=== PATIENT | female | born 1960 | race Caucasian/White ===

== ENCOUNTER 2021-03-06 14:02 | Emergency (ER) | payer BC ==
[~2021-03-06] VITALS: Ht 165.1 cm; Wt 70.9 kg
[2021-03-06 14:06] VITALS: BP 162/102
[2021-03-06] MEDS ORDERED: LIDOcaine 1% W/epiNEPHrine 1:200,000 10ml vial IJ ONE (15:00)
[2021-03-06] MEDS ORDERED: LIDOcaine 1% w/epiNEPHrine 1:200,000 30ml vial IJ ONE (15:10)
[2021-03-06] MEDS ORDERED: HYDR-3965 PO (18:30)
[2021-03-06] MEDS ORDERED: ONDA4TAB6 PO (18:30)
== END 2021-03-06 19:22 | disposition home or self-care (01) ==
LOC: ER 14:03
DX: S52.125A Nondisplaced fracture of head of left radius, initial encounter for closed fracture (principal); S62.115A Nondisplaced fracture of triquetrum [cuneiform] bone, left wrist, initial encounter for closed fracture; S01.111A Laceration without foreign body of right eyelid and periocular area, initial encounter; S41.112A Laceration without foreign body of left upper arm, initial encounter; S81.811A Laceration without foreign body, right lower leg, initial encounter; R20.0 Anesthesia of skin; Z79.899 Other long term (current) drug therapy; W19.XXXA Unspecified fall, initial encounter; Z91.81 History of falling; Y92.89 Other specified places as the place of occurrence of the external cause; Y93.67 Activity, basketball; Y99.8 Other external cause status; R11.0 Nausea; R10.9 Unspecified abdominal pain
CPT/HCPCS: 12001; 12011; 29105; 70450; 73080; 73090; 73110; 73590; 99284

== ENCOUNTER 2021-05-03 06:27 | Day surgery (SDC) | payer BC ==
[2021-04-29 15:00] LABS: BASOPHILS % (AUTO) 1.2 % (0-1); EOSINOPHILS # (AUTO) 0.1 X10'3 (0-0.9); EOSINOPHILS % (AUTO) 2.7 % (0-6); LYMPHOCYTES # (AUTO) 1.4 X10'3 (1.1-4.8); LYMPHOCYTES % (AUTO) 36.6 % (21-51); MEAN CORPUSCULAR HGB CONC 33.5 g/dL (33.0-36.5); MEAN CORPUSCULAR VOLUME 89.5 FL (78-98); MEAN PLATELET VOLUME 8.2 FL (7.4-10.4); MONOCYTES # (AUTO) 0.4 X10'3 (0-0.9); MONOCYTES % (AUTO) 11.3 % (2-12); NEUTROPHILS # (AUTO) 1.8 X10'3 (1.8-7.7); NEUTROPHILS % (AUTO) 48.2 % (42-75); PRE OP HEMATOCRIT 38.7 % (35.0-45.0); PRE OP PLATELET COUNT 246 X10'3 (140-440); RED BLOOD COUNT 4.33 X10'6 (4.20-5.60); RED CELL DISTRIBUTION WIDTH 13.8 % (11.5-14.5)
[2021-04-29 15:02] LABS: ALBUMIN 3.9 G/DL (3.4-5.0); ALBUMIN/GLOBULIN RATIO 1.1 (1.1-1.5); ALKALINE PHOSPHATASE 106 IU/L (46-116); BLOOD UREA NITROGEN 16 MG/DL (7-18); BUN/CREATININE RATIO 15.2 (6.6-38.0); CHLORIDE 106 MMOL/L (99-107); CREATININE 1.05 MG/DL (0.40-0.90); PRE OP ALT 25 U/L (30-65); PRE OP ANION GAP 5 (8-16); PRE OP AST 15 U/L (10-37); PRE OP BILIRUB, TOTAL 0.3 MG/DL (0.0-1.0); PRE OP GLUCOSE 104 MG/DL (70-104); PRE OP POTASSIUM 4.5 MMOL/L (3.4-5.1); PRE OP SODIUM 143 MMOL/L (135-145); TOTAL CARBON DIOXIDE 31.8 MMOL/L (24-32); TOTAL PROTEIN 7.5 G/DL (6.4-8.2); eGFR 53 ML/MIN
[2021-05-03] VITALS (7 sets, daily range): BP systolic 95–127; BP diastolic 58–81
[~2021-05-03] VITALS: Ht 167.6 cm; Wt 68.5 kg
[~2021-05-03 06:27] MED LIST: ASPI-1265 PO; CHOL50CA2 PO; CRAN450T4 PO; LEVO100T PO; MECO10005 PO; OMEG-79 PO; famotidine 20mg tablet PO ONE; ringers solution, lacted 1,000 ML IV SCH
[2021-05-03] MEDS ORDERED: BUPIVAcaine/PF 2.5mg/ml (0.25%) 10ml vial ONE (06:42)
[2021-05-03] MEDS ORDERED: ceFAZolin 2gm in dextrose, iso 50 ML IV ONE (07:36)
[2021-05-03] MEDS ORDERED: fentaNYL/PF 50MCG/1 ML 2ML syringe ONE (09:22)
[2021-05-03] MEDS ORDERED: midazolam 1 mg/ML 2ml injection ONE (09:34)
[2021-05-03] MEDS ORDERED: LIDOcaine 0.5% (5mg/ml) 50ml vial ONE (09:59)
[2021-05-03] MEDS ORDERED: propofol inj 20 ML IV ONE ×4 (10:39)
[2021-05-03] MEDS ORDERED: ROPIVAcaine 0.5% (5mg/ml) 30ml vial ONE (10:57)
--- NOTE | 2021-05-03 11:14 | NUR ---
Received from OR via [facility] , accompanied by Anesthesiologist DOYLE and report given by Anesthesiolgist. PATIENT WITH 20G PIV IN RIGHT AC RUNNING LR AT 100. LEFT WRIST WITH AVELINA WRAP PRESENT THIS IS CDI AT THIS TIME. + CAP REFILL TO ALL FINGERS. PWD NO DRAINAGE EVIDENT TO LEFT UE. Addendum: 05/03/21 at 1125 by Mikie Acuña RN, RN Amended: Links added.
[2021-05-03] MEDS ORDERED: morphine 2 MG/ML inj. syringe IV PRN (11:15)
[2021-05-03] MEDS ORDERED: proCHLORperazine 10 MG/2 ml inj IV PRN (11:15)
[2021-05-03] MEDS ORDERED: meperidine/PF 25mg/ml syringe IV PRN ×3 (11:15)
[2021-05-03] MEDS ORDERED: hydrALAZINE 20mg/ml inj. IV PRN (11:15)
[2021-05-03] MEDS ORDERED: labetalol 20mg/4ml (5mg/ml) syringe IV PRN (11:15)
[2021-05-03] MEDS ORDERED: acetaminophen 1,000mg/100ml IV 100 ML IV PRN (11:15)
[2021-05-03] MEDS ORDERED: ringers solution, lacted 1,000 ML IV SCH (11:15)
[2021-05-03] MEDS ORDERED: ketorolac trometh. 30mg/ml inj. IV ONE (11:15)
[2021-05-03] MEDS ORDERED: ondansetron/PF 4mg/2ml inj IV PRN (11:15)
[2021-05-03] MEDS ORDERED: morphine 4 MG/ML inj SYRINge IV PRN (11:15)
--- NOTE | 2021-05-03 12:14 | NUR ---
ALL DISCHARGE CRITERIA HAS BEEN MET. VSS, PAIN AT A TOLERABLE LEVEL, VOIDING AND ABLE TO SAFELY AMBULATE AND TRANSFER SELF. IV TAKEN OUT WITHOUT ANY COMPLICATIONS. ALL DISCHARGE INSTRUCTIONS COVERED WITH PATIENT AND ALL QUESTIONS ANSWERED. PATIENT TAKEN OUT VIA WHEELCHAIR TO PERSONAL VEHICLE WHERE FAMILY/FRIEND DROVE PATIENT HOME. Addendum: 05/03/21 at 1233 by Mikie Acuña RN, RN Amended: Links added.
== END 2021-05-03 12:14 | disposition home or self-care (01) ==
LOC: PAS 06:27
PROVIDERS: ATTEND Orthopaedic Surgery Hand Surgery
DX: S63.592A Other specified sprain of left wrist, initial encounter (principal); S63.392A Traumatic rupture of other ligament of left wrist, initial encounter; Z79.899 Other long term (current) drug therapy; Z79.82 Long term (current) use of aspirin; Z72.89 Other problems related to lifestyle; Z98.890 Other specified postprocedural states; Z90.710 Acquired absence of both cervix and uterus; Z20.822 Contact with and (suspected) exposure to COVID-19; W19.XXXA Unspecified fall, initial encounter; Y93.89 Activity, other specified; Y92.89 Other specified places as the place of occurrence of the external cause; Y99.8 Other external cause status
CPT/HCPCS: 25320; 29846; 36415; 80053; 82948; 85025; 87635; C1713; C1773; C9803; J0690; J2250; J2704; J2795; J3010; J3490; J7030; J7120; Z7506; Z7508; Z7512; A4215; A4618; A6449; A7000